=== PATIENT | female | born 1940 | race Caucasian/White ===

== ENCOUNTER 2017-08-06 09:13 | Emergency (ER) | payer MEDICARE, BC ==
[~2017-08-06] VITALS: Ht 167.6 cm; Wt 79.4 kg
[~2017-08-06 09:13] MED LIST: ACETAMINOPHEN500 MG PO; ACTOS PLUS PO; ALLEGRA ALLERG180 M1 PO; ASPI81CH PO; ASPI81EC PO; B-COMPLEX WITH1 EAC2; CEFA250 PO; CITRACAL + D E1 EACH PO; CRUTCH3 USE; Cipro250 MG PO; DESO.05TCA TOP; DULOXETINE HCL40 MG PO; Dulcolax Stool100 MG PO; ESTRTP VAG; FENO145 PO; FENO160; FEXO60 PO; Glucosamine Ch1 EAC4 PO; HYDACE5 PO; HYDSUL200 PO; INSULANPEN SC; LEVEMIR; LEVO750 PO; LEVSOD50; LEVSOD75 PO; LEVSOD88 PO; LIDO5TP TOP; Lisinopril2.5 MG PO; METO25 PO; METTREX2.5; NAPR500 PO; NITR50; NITR50 PO; Norco 5-325 Ta1 EACH PO; OMEP20ER PO; OXYACE5T PO; PRAVASTATIN SOD10 MG PO; PROM25 PO; Prilosec Otc20 MG PO; TIZANIDINE HCL2 MG; TRIA80TC TOP; Vitamin B Comple1 EA PO; ZYRTEC10 M1 PO
[2017-08-06] MEDS ORDERED: Motion Sickness25 M1 PO (11:02)
== END 2017-08-06 11:18 | disposition home or self-care (01) ==
LOC: ER 09:13
DX: R07.9 Chest pain, unspecified (principal); R42 Dizziness and giddiness; Z77.098 Contact with and (suspected) exposure to other hazardous, chiefly nonmedicinal, chemicals; E11.9 Type 2 diabetes mellitus without complications; E03.9 Hypothyroidism, unspecified; Z88.0 Allergy status to penicillin; Z88.2 Allergy status to sulfonamides; Z88.8 Allergy status to other drugs, medicaments and biological substances; Z79.899 Other long term (current) drug therapy; Z79.4 Long term (current) use of insulin; Z79.82 Long term (current) use of aspirin
CPT/HCPCS: 71046; 93005; 93010; 94640; 99283